=== PATIENT | male | born 1945 | race Caucasian/White ===

== ENCOUNTER → 2019-10-21 | Outpatient (CLI) | payer SELFPAY ==
[2019-10-21 13:07] LABS: BASOPHILS ABSOLUTE AUTO 0.07 K/mm3 (0.00-0.23); BASOPHILS PERCENT AUTO 1 % (0-2); EOSINOPHILS ABSOLUTE AUTO 0.01 K/mm3 (0.00-0.68); EOSINOPHILS PERCENT AUTO 0 % (0-6); Hematocrit 48.2 % (37.0-53.0); Hemoglobin 16.3 g/dL (13.5-17.5); IMMATURE GRAN ABSOLUTE AUTO 0.03 K/mm3 (0.00-0.10); IMMATURE GRAN PERCENT AUTO 0 % (0-1); LYMPHOCYTES ABSOLUTE AUTO 0.83 K/mm3 (0.84-5.20); LYMPHOCYTES PERCENT AUTO 8 % (21-46); MONOCYTES ABSOLUTE AUTO 0.41 K/mm3 (0.16-1.47); MONOCYTES PERCENT AUTO 4 % (4-13); Mean Corpuscular HGB 32.5 pg (26.0-34.0); Mean Corpuscular HGB Conc 33.8 g/dL (31.5-36.5); Mean Corpuscular Volume 96 fL (80-100); Mean Platelet Volume 9.8 fL (9.1-12.4); NEUTROPHILS ABSOLUTE AUTO 9.45 K/mm3 (1.96-9.15); NEUTROPHILS PERCENT AUTO 88 % (41-73); Platelet Count 444 K/mm3 (150-400); RDW Coefficient Variation 13.1 % (11.7-14.2); RDW Standard Deviation 46.8 fL (35.1-46.3); Red Blood Cell Count 5.01 M/mm3 (4.30-5.90)
[2019-10-21 13:18] LABS: Anion Gap 7 mmol/L (6-16); Blood Urea Nitrogen 13 mg/dL (8-24); Bun/Creatinine Ratio 14.7 (12.0-20.0); CO2, Blood 26 mmol/L (21-32); Calcium, Blood 9.7 mg/dL (8.5-10.1); Chloride, Blood 104 mmol/L (98-108); Creatinine, Blood 0.88 mg/dL (0.60-1.20); Glomerular Filtration Rate >60 (60-); Glucose, Blood 123 mg/dL (70-99); Prostate Specific Antigen 0.226 ng/mL (0.000-4.000); Sodium, Blood 137 mmol/L (136-145)
== END ==
LOC: LAB SHORT 12:15 → LAB 12:15
PROVIDERS: Nurse Practitioner
DX: R10.30 Lower abdominal pain, unspecified (principal)
CPT/HCPCS: 80048; 83690; 85025; G0103

== ENCOUNTER → 2020-01-02 | Outpatient (CLI) | payer OTHER ==
[2020-01-02 14:13] LABS: Albumin, Blood 2.9 g/dL (3.4-5.0); Anion Gap 4 mmol/L (6-16); Blood Urea Nitrogen 17 mg/dL (8-24); CO2, Blood 31 mmol/L (21-32); Calcium, Blood 9.5 mg/dL (8.5-10.1); Chloride, Blood 107 mmol/L (98-108); Creatinine, Blood 0.77 mg/dL (0.60-1.20); Glomerular Filtration Rate >60 (60-); Glucose, Blood 117 mg/dL (70-99); Phosphorus, Blood 2.8 mg/dL (2.5-4.9); Potassium, Blood 3.9 mmol/L (3.5-5.5); Sodium, Blood 142 mmol/L (136-145)
== END | disposition home or self-care (01) ==
LOC: LAB 13:49 → LAB SHORT 13:49
PROVIDERS: Radiology Radiation Oncology
DX: C34.31 Malignant neoplasm of lower lobe, right bronchus or lung (principal); C79.51 Secondary malignant neoplasm of bone; Z72.0 Tobacco use
CPT/HCPCS: 80069

== ENCOUNTER 2020-07-27 12:12 | Inpatient (IN) | payer OTHER, MEDICARE ==
[~2020-07-27] VITALS: Ht 180.3 cm; Wt 69.9 kg
[2020-07-27 12:27] LABS: BASOPHILS ABSOLUTE AUTO 0.06 K/mm3 (0.00-0.23); BASOPHILS PERCENT AUTO 1 % (0-2); EOSINOPHILS ABSOLUTE AUTO 0.05 K/mm3 (0.00-0.68); EOSINOPHILS PERCENT AUTO 1 % (0-6); Hemoglobin 14.5 g/dL (13.5-17.5); IMMATURE GRAN ABSOLUTE AUTO 0.07 K/mm3 (0.00-0.10); IMMATURE GRAN PERCENT AUTO 1 % (0-1); LYMPHOCYTES ABSOLUTE AUTO 0.43 K/mm3 (0.84-5.20); LYMPHOCYTES PERCENT AUTO 4 % (21-46); MONOCYTES ABSOLUTE AUTO 0.53 K/mm3 (0.16-1.47); MONOCYTES PERCENT AUTO 5 % (4-13); Mean Corpuscular HGB 32.2 pg (26.0-34.0); Mean Corpuscular Volume 98 fL (80-100); NEUTROPHILS ABSOLUTE AUTO 9.27 K/mm3 (1.96-9.15); NEUTROPHILS PERCENT AUTO 89 % (41-73); Platelet Count 278 K/mm3 (150-400); RDW Coefficient Variation 13.3 % (11.7-14.2); RDW Standard Deviation 48.4 fL (35.1-46.3); Red Blood Cell Count 4.51 M/mm3 (4.30-5.90); White Blood Cell Count 10.41 K/mm3 (4.00-11.30)
[2020-07-27 12:45] LABS: International Normalized Ratio 1.09; Prothrombin Time Results 11.7 Sec (9.7-11.5)
[2020-07-27 12:47] LABS: Alanine Aminotransfer (ALT/SGP 27 U/L (12-78); Albumin, Blood 3.2 g/dL (3.4-5.0); Albumin/Globulin Ratio 0.9 (0.8-1.8); Alk Phos 90 U/L (50-136); Anion Gap 3 mmol/L (6-16); Aspartate Aminotrans (AST/SGOT 21 U/L (12-37); Bilirubin, Total 0.3 mg/dL (0.1-1.0); Blood Urea Nitrogen 17 mg/dL (8-24); Bun/Creatinine Ratio 18.7 (12.0-20.0); CO2, Blood 30 mmol/L (21-32); Chloride, Blood 105 mmol/L (98-108); Creatinine, Blood 0.91 mg/dL (0.60-1.20); Globulin, Blood 3.5 g/dL (2.2-4.0); Glomerular Filtration Rate >60 (60-); Glucose, Blood 144 mg/dL (70-99); Sodium, Blood 138 mmol/L (136-145); Total Protein, Blood 6.7 g/dL (6.4-8.2)
[2020-07-27 12:47] LABS: Source, Urine Clean Catch
[2020-07-27 12:52] LABS: Bilirubin, Urine Neg (Neg); Blood, Urine Neg (Neg); Glucose Qualitative, Urine Neg (Neg); Ketones, Urine Neg (Neg); Leukocyte Esterase, Urine Neg (Neg); Nitrite, Urine Neg (Neg); Protein, Urine Neg (Neg); Urobilinogen, Urine NORM (Normal)
[2020-07-27 12:53] LABS: Appearance, Urine Clear (Clear); Color, Urine Yellow (P-Yellow)
[2020-07-27] MEDS ORDERED: DOXY100 PO (12:56)
[2020-07-27] MEDS ORDERED: CHLO25B PO (12:56)
[2020-07-27] MEDS ORDERED: BENZ100A PO (12:56)
[2020-07-27] MEDS ORDERED: DOC250 PO (12:56)
[2020-07-27 14:19] LABS: Cholesterol 148 mg/dL (50-200); HDL Cholesterol 50 mg/dL (>39); LDL/HDL RATIO 1.6; Low Density Lipoprotein Chol 79 mg/dL (0-110); Triglycerides 97 mg/dL (30-160); Very Low Density Lipoprot Chol 19 mg/dL (6-32)
--- NOTE | 2020-07-27 15:46 | NUR ---
SBAR REPORT FROM SCOTT PALOMINO RN
[2020-07-27] MEDS ORDERED: TRAZ100 PO (16:26)
[2020-07-27] MEDS ORDERED: GABA300 PO (16:26)
[2020-07-27] MEDS ORDERED: PRED20 PO (16:26)
[2020-07-27] MEDS ORDERED: VITAMIN D325 MC3 PO (17:12)
[2020-07-27] MEDS ORDERED: FOLI1 PO (17:12)
[2020-07-27] MEDS ORDERED: VITAMIN B-1250 MCG PO (17:13)
[2020-07-27] MEDS ORDERED: MAGNESIUM OXID500 MG PO (17:14)
[2020-07-27] MEDS ORDERED: Nortriptyline H50 MG PO (17:15)
[2020-07-27] MEDS ORDERED: Hydroxyzine HCl50 MG PO (17:15)
[2020-07-27] MEDS ORDERED: LOSA50 PO (17:16)
--- NOTE | 2020-07-28 04:17 | NUR ---
SHIFT SUMMARY ADMITTED FOR POSSIBLE CVA WITH LEFT SIDED WEAKNESS. FULL CODE. PT HAD SELF-REPORTED IMPROVEMENT IN STRENGTH TO THE LEFT ARM AND LEG. NO FACIAL DROOP NOTED. PT ON BEDREST. PT REPORTS DIFFICULTY SLEEPING WITHOUT HIS NORMAL NIGHT MEDICATION. NO OTHER CONCERNS THIS SHIFT.
--- NOTE | 2020-07-28 05:42 | NUR ---
CTA/COMPENSATION PROGRAMS MANAGER I HAVE ASSESSED THIS PT. I HAVE READ THIS COMPENSATION PROGRAMS MANAGER'S DOCUMENTATION AND I AGREE. SHIFT SUMMARY IS IN COMPENSATION PROGRAMS MANAGER NOTES.
--- NOTE | 2020-07-28 14:39 | NUR ---
PT IS WAITING FOR MRI. RECOMMENDATION WAS FOR PT TO HAVE MRI OUTPATIENT WHEN IT CAN BE DETERMINED WHAT KIND OF ANEURISM CLIPS PT HAS. WHEN ASKED ABOUT ANEURISM CLIPS PT DELINES HAVING AND ANEURISM CLIPPED. WILL RE-SCREEN PT FOR MRI WHEN HIS ARRIVES. PT IS ALERT AND ORIENTED BUT MAY BENEFIT FROM ADDITIONAL PERSON TO REMEMBER HEALTH HISTORY. PT REPORTS HE HAS HAD MULTIPLE SURGERIES/HOSPITALIZATIONS IN THE PAST.
--- NOTE | 2020-07-28 14:43 | NUR ---
PT REPORTS HE HAS A HX OF A HEMORRHAGIC STROKE AND WAS SEEN IN [facility] FOR THIS REASON. PT DENIES HAVING ANEURYSM CLIPPED AT THAT TIME. WITH PT CONSENT THE HOSPITAL WAS CONTACTED, THEY REPORTED NO ACCESS TO THE PT'S MEDICAL RECORDS SINCE THEY HAD SWITCH COMPUTER SYSTEM SINCE HE WAS SEEN IN THAT HOSPITAL. THEY REPORTED MEDICAL RECORDS WOULD BE OPEN ON WEDNESDAY AND PHONE NUMBER IS [phone].
--- NOTE | 2020-07-28 16:40 | NUR ---
ELEVATED BP DR. MEDRANO NOTIFIED OF ELEVATED BP THIS AFTERNOON 179/113. AT THIS TIME HYDRALAZINE HELD PER DR. MEDRANO'S REQUEST. WILL REASSESS BP AT 1700.
--- NOTE | 2020-07-28 17:29 | NUR ---
ELEVATED BP PT HAD ELEVATED BP OF 204/117. DR. MEDRANO NOTIFIED. IV HYDRALAZINE GIVEN. WILL REASSESS IN APPROXIMATELY 30MIN. PT DENIES HEADACHE. PT DOES APPEAR FLUSHED.
--- NOTE | 2020-07-28 17:59 | NUR ---
PT WAS GIVEN HYDRALAZINE FOR ELEVATED BP. HE BECAME NAUSEATED, DIAPHORETIC AND VOMITED. HE ALSO COMPLAINED OF SHORTNESS OF BREATH AFTER VOMITING, THIS RESOLVED WITHOUT INTERVENTION AND O2 SATURATION 95%ON RA. PT DENIED CHEST PAIN. LUNG SHOUNDS COARSE TO L BASE. DR. MEDRANO WAS NOTIFIED OF CHANGES AFTER PT WAS GIVEN HYDRALAZINE. SHE ALSO ORDERED PT'S HOME MEDICATIONS NOT LISTED ON THE EMAR.
--- NOTE | 2020-07-28 18:35 | NUR ---
AFIB PER TYRE FINISHER AND EXAMINER PT CONVERTED FROM NSR TO AFIB WITH RATE 130-140. PT IS ASYMPTOMATIC AT THIS TIME. WILL GIVE CARDIZEM AND ASA PER DR. MEDRANO. DR. MEDRANO NOTIFIED OF RHYTHM CHANGE.
--- NOTE | 2020-07-28 19:50 | NUR ---
SHIFT SUMMARY PT REMAINS IN THE HOSPITAL R/T MRI RESULTS. HE ALSO HAD ELEVATED BLOOD PRESSURE THIS EVENING. HOME MEDICATIONS RESTARTED PER DR. MEDRANO. ASA DOSE INCREASED. PT REMAINS AWAKE AND ORIENTED ALTHOUGH HE IS DROWSY R/T HIS NORMAL NIGHT TIME MEDICATIONS, PT REPORTS HE NORMALLY GOES TO BED AT 7 SO HIS NIGHT MEDS WERE GIVEN EARLY, OK'D WITH DR. MEDRANO. REPORT GIVEN TO DIPIKA MARTINEZ.
--- NOTE | 2020-07-29 04:12 | NUR ---
VETERINARY PARASITOLOGIST SUMMARY AT START OF SHIFT PT HYPOTENSIVE WITH SBP 94. THIS WAS A DRASTIC CHANGE FOR PT HE HAD BEEN VERY HYPERTENSIVE FOR THE LAST COUPLE DAYS WITH SBP 170-200'S. PT HAD RECIEVED IV CARDIZEM FROM DAY SHIFT RN JUST PRIOR TO START OF SHIFT FOR HR OF 130'S. AT TIME OF LOW BP PT HR CONTINUED TO BE 130-140'S EVEN AFTER CARDIZEM GIVEN. NOTIFIED HOSPITALIST THOMAS WHO GAVE ORDER FOR 500 ML NS BOLUS. AFTER BOLUS SBP 105 AND HR DOWN TO 110'S. CELLAR PUMPER ALSO STATED PT CONVERTED BACK TO SR FROM AFIB. HR TRENDING DOWN THROUGH THE NIGHT AND NOW NSR 90'S THIS AM. SBP STABLE THIS AM AT 120'S. PT HAS HAD NO COMPLAINTS THROUGH THE NIGHT AND HAS SLEPT WELL. WILL CONTINUE TO MONITOR.
[2020-07-29] MEDS ORDERED: Nicoderm Cq1 EAC1 TOP (11:03)
[2020-07-29] MEDS ORDERED: XARELTO20 MG PO (11:03)
--- NOTE | 2020-07-29 15:37 | NUR ---
DISCHARGE INSTRUCTIONS COMPLETED AND DISCUSSED WITH PT EXPRESSING UNDERSTANDING. ENCOURAGED PT TO NUCLEAR FUELS RECLAMATION ENGINEER SCRIPTS EARLY A.M. SO HE CAN TAKE THEM TOMORROW DUE TO PHARMACY BEING CLOSED TODAY. REFERRAL PLACED FOR [facility] [employer] PER INSERTER PROMOTIONAL ITEM RECOMMENDATION HERE JUST PRIOR TO DISCHARGE. AT BEDSIDE. TO [facility] VIA W/C.
== END 2020-07-29 15:06 | disposition home or self-care (01) | DRG 65 ==
LOC: ER 12:12 → MEDS 12:13 → ENPENDDIS 07-29 10:37 → MEDS 07-29 15:06
PROVIDERS: Emergency Medicine; ADMIT Family Medicine
DX: I63.40 Cerebral infarction due to embolism of unspecified cerebral artery (principal); C34.90 Malignant neoplasm of unspecified part of unspecified bronchus or lung; C79.9 Secondary malignant neoplasm of unspecified site; G81.04 Flaccid hemiplegia affecting left nondominant side; G40.909 Epilepsy, unspecified, not intractable, without status epilepticus; I25.10 Atherosclerotic heart disease of native coronary artery without angina pectoris; G89.29 Other chronic pain; M54.9 Dorsalgia, unspecified; I48.0 Paroxysmal atrial fibrillation; E21.3 Hyperparathyroidism, unspecified; H53.8 Other visual disturbances; J44.9 Chronic obstructive pulmonary disease, unspecified; E05.90 Thyrotoxicosis, unspecified without thyrotoxic crisis or storm; F10.10 Alcohol abuse, uncomplicated; M89.49 Other hypertrophic osteoarthropathy, multiple sites; F32.9 Major depressive disorder, single episode, unspecified; Z86.19 Personal history of other infectious and parasitic diseases; Z88.5 Allergy status to narcotic agent; Z87.442 Personal history of urinary calculi; Z98.890 Other specified postprocedural states; Z71.6 Tobacco abuse counseling
CPT/HCPCS: 36415; 70450; 70551; 71045; 80053; 80061; 81003; 85025; 85610; 85730; 92610; 93005; 93010; 93306; 93880; 94760; 96372; 96374; 96375; 97162; 99285-25; A9270; G0378; J0360; J1650; J2405; J7040

== ENCOUNTER 2020-08-08 13:56 | Emergency (ER) | payer OTHER, MEDICARE ==
[~2020-08-08] VITALS: Ht 177.8 cm; Wt 69.4 kg
[~2020-08-08 13:56] MED LIST: BENZ100A PO; CHLO25B PO; DOC250 PO; DOXY100 PO; FOLI1 PO; GABA300 PO; Hydroxyzine HCl50 MG PO; LOSA50 PO; MAGNESIUM OXID500 MG PO; Nicoderm Cq1 EAC1 TOP; Nortriptyline H50 MG PO; PRED20 PO; TRAZ100 PO; VITAMIN B-1250 MCG PO; VITAMIN D325 MC3 PO; XARELTO20 MG PO
[2020-08-08] MEDS ORDERED: NORTRIPTYLINE H PO (14:32)
[2020-08-08] MEDS ORDERED: ONDA4 PO (14:33)
[2020-08-08] MEDS ORDERED: SERT25 PO (14:35)
[2020-08-08 14:55] LABS: BASOPHILS ABSOLUTE AUTO 0.08 K/mm3 (0.00-0.23); BASOPHILS PERCENT AUTO 1 % (0-2); EOSINOPHILS ABSOLUTE AUTO 0.05 K/mm3 (0.00-0.68); EOSINOPHILS PERCENT AUTO 1 % (0-6); Hematocrit 45.6 % (37.0-53.0); IMMATURE GRAN ABSOLUTE AUTO 0.08 K/mm3 (0.00-0.10); IMMATURE GRAN PERCENT AUTO 1 % (0-1); LYMPHOCYTES ABSOLUTE AUTO 0.69 K/mm3 (0.84-5.20); LYMPHOCYTES PERCENT AUTO 7 % (21-46); MONOCYTES ABSOLUTE AUTO 0.64 K/mm3 (0.16-1.47); MONOCYTES PERCENT AUTO 6 % (4-13); Mean Corpuscular HGB 32.3 pg (26.0-34.0); Mean Corpuscular HGB Conc 32.9 g/dL (31.5-36.5); Mean Corpuscular Volume 98 fL (80-100); Mean Platelet Volume 10.1 fL (9.1-12.4); NEUTROPHILS ABSOLUTE AUTO 8.91 K/mm3 (1.96-9.15); NEUTROPHILS PERCENT AUTO 85 % (41-73); Platelet Count 355 K/mm3 (150-400); RDW Coefficient Variation 13.4 % (11.7-14.2); RDW Standard Deviation 48.9 fL (35.1-46.3); Red Blood Cell Count 4.64 M/mm3 (4.30-5.90); White Blood Cell Count 10.45 K/mm3 (4.00-11.30)
[2020-08-08 14:58] LABS: Alanine Aminotransfer (ALT/SGP 34 U/L (12-78); Albumin, Blood 3.3 g/dL (3.4-5.0); Albumin/Globulin Ratio 0.8 (0.8-1.8); Alk Phos 88 U/L (50-136); Anion Gap 3 mmol/L (6-16); Aspartate Aminotrans (AST/SGOT 25 U/L (12-37); Bilirubin, Total 0.3 mg/dL (0.1-1.0); Blood Urea Nitrogen 20 mg/dL (8-24); Bun/Creatinine Ratio 23.6 (12.0-20.0); CO2, Blood 29 mmol/L (21-32); Calcium, Blood 9.1 mg/dL (8.5-10.1); Chloride, Blood 105 mmol/L (98-108); Creatinine, Blood 0.85 mg/dL (0.60-1.20); Globulin, Blood 3.9 g/dL (2.2-4.0); Glomerular Filtration Rate >60 (60-); Glucose, Blood 103 mg/dL (70-99); Potassium, Blood 3.8 mmol/L (3.5-5.5); Sodium, Blood 137 mmol/L (136-145); Total Protein, Blood 7.2 g/dL (6.4-8.2); Troponin I <0.015 ng/mL (0.000-0.040)
== END 2020-08-08 16:33 | disposition home or self-care (01) ==
LOC: ER 13:56
PROVIDERS: Emergency Medicine
DX: R59.0 Localized enlarged lymph nodes (principal); I10 Essential (primary) hypertension; I25.10 Atherosclerotic heart disease of native coronary artery without angina pectoris; Z79.899 Other long term (current) drug therapy; Z88.5 Allergy status to narcotic agent; Z87.891 Personal history of nicotine dependence
CPT/HCPCS: 80053; 82378; 83615; 84484; 85025; 93005; 93010; 99284-25

== ENCOUNTER → 2020-09-09 | Outpatient (CLI) | payer OTHER, MEDICARE ==
[~2020-09-09] MED LIST changes: +NORTRIPTYLINE H PO; +ONDA4; +SERT25 PO
== END | disposition home or self-care (01) ==
LOC: LAB SHORT 07:07 → LAB 07:07
DX: C34.90 Malignant neoplasm of unspecified part of unspecified bronchus or lung (principal); R59.1 Generalized enlarged lymph nodes
CPT/HCPCS: 88173

== ENCOUNTER 2020-09-13 08:50 | Inpatient (IN) | payer OTHER, MEDICARE ==
[~2020-09-13] VITALS: Ht 180.3 cm; Wt 78.2 kg
[~2020-09-13 08:50] MED LIST changes: -ONDA4; +ONDA4 PO
--- NOTE | 2020-09-13 11:06 | NUR ---
PT INTO DSD BY W/C BUT ABLE TO STAND AND WALK SHORT DISTANCES. History, Chart, Medications and Allergies reviewed before start of procedure. Patient confirms NPO status and agrees with scheduled surgery. Lungs clear T/O to Auscultation BUT PT SOUNDS GURGLY IN THROAT, PT ABLE TO CLEAR THROAT. Pre-Op teaching done. Pt verbalizes understanding. PT'S VACCINATION CARD NOT AVAILABEL SO SENT A STAT RAPID COVID TEST.
[2020-09-13 11:54] LABS: SARS-Cov-2 (COVID-19) PCR, MMC NEGATIVE (NEGATIVE)
--- NOTE | 2020-09-13 13:22 | NUR ---
09/13/20 1322 Stacy Ramírez [id number] TRACHEOSTOMY TUBE XLT CUFFED USED. OBTURATOR SENT WITH PATIENT AND TAPED TO HIS HEAD OF BED.
[2020-09-13 15:20] LABS: Hematocrit 38.3 % (37.0-53.0); Hemoglobin 12.3 g/dL (13.5-17.5); Mean Corpuscular HGB 31.9 pg (26.0-34.0); Mean Corpuscular HGB Conc 32.1 g/dL (31.5-36.5); Mean Corpuscular Volume 99 fL (80-100); Mean Platelet Volume 9.7 fL (9.1-12.4); Platelet Count 265 K/mm3 (150-400); RDW Coefficient Variation 14.5 % (11.7-14.2); RDW Standard Deviation 52.6 fL (35.1-46.3); Red Blood Cell Count 3.86 M/mm3 (4.30-5.90); White Blood Cell Count 15.99 K/mm3 (4.00-11.30)
[2020-09-13 15:40] LABS: Albumin, Blood 2.7 g/dL (3.4-5.0); Anion Gap 2 mmol/L (6-16); Blood Urea Nitrogen 19 mg/dL (8-24); Bun/Creatinine Ratio 17.9 (12.0-20.0); CO2, Blood 33 mmol/L (21-32); Chloride, Blood 103 mmol/L (98-108); Creatinine, Blood 1.06 mg/dL (0.60-1.20); Glomerular Filtration Rate >60 (60-); Glucose, Blood 113 mg/dL (70-99); Phosphorus, Blood 1.8 mg/dL (2.5-4.9); Potassium, Blood 3.9 mmol/L (3.5-5.5); Sodium, Blood 138 mmol/L (136-145)
--- NOTE | 2020-09-13 17:38 | NUR ---
SUMMARY PT ARRIVED TO ICU 3 AT 1410 FROM OR. PT HAD TRACH PLACED. PT WAS ON VENTILATOR FOR SHORT AMT OF TIME DURING RECOVERY THEN TRANSITIONED TO T PIECE WITH FIO2 AT 35%. ABLE TO CLEAR SECRETIONS. PT IS A/O X4. ABLE TO MOUTH WORDS VERY CLEARLY TO MAKE NEEDS KNOWN. PT HAS BEEN STABLE. DR. CHEW WAS CONSULTED FOR HOSPITALIST SERVICE. WANTS TO KEEP PT IN ICU FOR THE NIGHT. EDUCATED PT AND ABOUT NPO ORDERS FOR TODAY AND HOPEFULLY PT WILL BE ABLE TO HAVE SPEAKING VALVE PLACED. FENTANYL GIVEN 1X FOR DISCOMFORT AT TRACH SITE. SM AMT OF BLOOD AROUND TRACH BUT HAS NOT WORSENED SINCE ARRIVAL FROM OR. PT HAS SWELLING IN NECK THAT WAS PRESENT BEFORE TRACH PROCEDURE PER PT AND . NO SIGN OF DISTRESS NOW, CALL LIGHT IN REACH.
[2020-09-14 03:48] LABS: Hematocrit 42.5 % (37.0-53.0); Hemoglobin 13.6 g/dL (13.5-17.5)
[2020-09-14 04:10] LABS: Anion Gap 2 mmol/L (6-16); Blood Urea Nitrogen 21 mg/dL (8-24); Bun/Creatinine Ratio 21.3 (12.0-20.0); CO2, Blood 31 mmol/L (21-32); Calcium, Blood 8.6 mg/dL (8.5-10.1); Chloride, Blood 104 mmol/L (98-108); Creatinine, Blood 0.99 mg/dL (0.60-1.20); Glomerular Filtration Rate >60 (60-); Glucose, Blood 86 mg/dL (70-99); Potassium, Blood 4.3 mmol/L (3.5-5.5); Sodium, Blood 137 mmol/L (136-145)
--- NOTE | 2020-09-14 05:01 | NUR ---
SHIFT SUMMARY PATIENT HAS SLEPT WELL THRU NIGHT. OBTAINED ORDER PER DR HURT FOR DILAUDED 1MG FOR PAIN NOT WELL CONTROLLED WITH FENTANYL, PT NOW DENIES PAIN. SWELLING IS SLIGHTLY MORE THAN AT START OF SHIFT, SOME SMALL AMOUNT OF BLEEDING NOTED FROM TRACH SITE. PT MANAGING SECRETIONS WELL. ASSESSMENT IS CHARTED. VSS. WILL CONTINUE TO MONITOR.
--- NOTE | 2020-09-14 10:03 | NUR ---
PT RESTING IN BED. NEW TRACH. PT IS ABLE TO MOUTH WORDS CLEARLY AND MAKE NEEDS KNOWN. ALSO USES CALL LIGHT APPROPRIATELY. PT C/O DISCOMFORT TO [facility] WHERE TRACH IS INSERTED. FENTANYL GIVEN. ALTERNATING FENTANYL AND DILAUDID. SMALL AMT OF SERSANG DRAINAGE FROM AROUND TRACH. PT IS ON T-PIECE AT 35% FIO2. PT IS DOING WELL CLEARING HIS OWN SECRETIONS. NO SIGN OF DISTRESS.
--- NOTE | 2020-09-14 18:45 | NUR ---
SUMMARY PT HAS BEEN RESTING IN BED. GOT OOB TO COMMODE ONE TIME AND TOLERATED WELL. HAS BEEN ON T-PIECE ALL DAY AT 35% FIO2. WILL DESAT TO MID 80'S WHEN OFF T-PIECE. STILL HAVING SEROSANG DRAINAGE FROM TRACH SITE. BLOODY SECRETIONS WHEN DEEP SUCTIONING TRACH. STILL HAS SWELLING IN NECK. HAD BEEN TRYING TO CONTACT DR. DOHERTY THIS AFTERNOON AND DR. ROBLERO WAS ABLE TO REACH HIM FOR PLAN OF CARE. NEW ORDERS BEING ENTERED BY DR. ROBLERO. DILAUDID GIVEN FOR DISCOMFORT AROUND TRACH SITE. PT ALSO HAS METS TO BONE PER THAT CAUSES A LOT OF BACK PAIN. PT IS PLEASANT AND COOPERATIVE. MAKES NEEDS KNOWN BY MOUTHING WORDS OR WRITING ON PAPER. USES CALL LIGHT APPROPRIATELY. NO SIGN OF DISTRESS.
--- NOTE | 2020-09-14 22:20 | NUR ---
PT IS ALERT AND ORIENTED. VITALS ARE STABLE. PT WAS ADVANCED TO A CLEAR LIQUID DIET AND TOLERATED PILLS AND BROTH WELL. DR DOHERTY WAS IN TO SEE PT AND DIET WAS ADVANCED TO ADVANCE TOLERATED WITH MONITORING. PT WAS CHANGED TO PCU STATUS. CALL LIGHT IS WITHIN REACH AND USING IT APPROPRIETLY. PT IS USING URINAL IN BED. WILL CONTINUE TO MONITIOR.
--- NOTE | 2020-09-14 22:51 | NUR ---
CALLED DR LAGUNAS REGARDING THE NEED FOR A LONG ACTING PAIN MEDICATION FOR PT DUE TO HAVING ONLY IV PAIN MEDS. DUE TO PT'S ALLERGY TO OXYCODONE; IV DILAUDID ORDER WILL BE CHANGED TO 1-2MG.
--- NOTE | 2020-09-15 02:15 | NUR ---
AT APPROX 0110 PT REPORTED HAVING AN UPSET STOMACH AND NAUSEA. ORDER FOR ZOFRAN WAS OBTAINED. PT WAS MEDICATED PER EMAR AND REPORT FEELING BETTER. WILL CONTINUE TO MONITOR
[2020-09-15 03:22] LABS: Hematocrit 41.4 % (37.0-53.0); Hemoglobin 13.3 g/dL (13.5-17.5); Mean Corpuscular HGB 32.4 pg (26.0-34.0); Mean Corpuscular HGB Conc 32.1 g/dL (31.5-36.5); Mean Corpuscular Volume 101 fL (80-100); Mean Platelet Volume 9.9 fL (9.1-12.4); Platelet Count 278 K/mm3 (150-400); RDW Coefficient Variation 14.2 % (11.7-14.2); RDW Standard Deviation 52.8 fL (35.1-46.3); Red Blood Cell Count 4.11 M/mm3 (4.30-5.90); White Blood Cell Count 10.67 K/mm3 (4.00-11.30)
[2020-09-15 03:39] LABS: Albumin, Blood 2.8 g/dL (3.4-5.0); Anion Gap 2 mmol/L (6-16); Blood Urea Nitrogen 20 mg/dL (8-24); CO2, Blood 31 mmol/L (21-32); Chloride, Blood 102 mmol/L (98-108); Glomerular Filtration Rate >60 (60-); Glucose, Blood 86 mg/dL (70-99); Phosphorus, Blood 2.6 mg/dL (2.5-4.9); Potassium, Blood 4.2 mmol/L (3.5-5.5); Sodium, Blood 135 mmol/L (136-145)
--- NOTE | 2020-09-15 04:42 | NUR ---
SHIFT SUMMARY PT IS ALERT AND ORIENTED. COOOMUICATED BY LIP OR WITH NOTEPAD. VITALS HAVE BEEN STABLE WITH SOFT BP'S. PT DID WRTITE ON HIS BOARD LAST NIGHT THAT "HE ALMOST IN OR AND WANTED TO BE WATCHED CLOSELY." PT REPORTS FELLING AN UPSET STOMACH WITH LITTLE RELIEF FROM ZOFRAN. PT REPORTS PAIN OF 9/10 IN NECK WITH SHORT RELIEF FOR ORDERED MED. THERE IS SMALL OF BLOOD DRAINING FROM THE SUROUNDINGS OF THE TRACH. PT WAS ADVANCED TO CLEAR LIQUIDS AND TOLERATED BROTH AND ORAL MEDS WITH WATER WELL WITH NO COUGH. DR JOHN ADVANCED TO ADVANCE TOLERATED WITH OBSERVATION. PT HAS NOT HAD THE NEED TO GET OUT OF BED BUT ALL EXTREMETIES ARE WEAK. USING URINAL ON BED. CALL LIGHT IS WITHIN REACH.
--- NOTE | 2020-09-15 10:06 | NUR ---
PT ALERT AND ORIETNED. ABLE TO COMMUNICATE BY MOUTHING WORDS AND USING NOTEPAD. LUNGS SOUNDING COARSE THROUGHOUT. TRACH COLLAR IN PLACE WITH T PIECE AND 40% FIO2, SATING AT 93-94%. SUCTIONING NEEDED. DRAINING MODERATE AMOUNT OF BLOOD SURROUNDING TRACH SIGHT. TELE SHOWING SINUS WITH HR 60-70'S. DENIES CHEST PAIN/PRESSURE. VITAL SIGNS STABLE WITH SOFTER BP. BOWEL SOUNDS PRESENT. PT SLEEPING IN BED THIS AM. TOLERATING CLEAR LIQUID DIET AND ABLE TO TAKE MEDS ONE AT A TIME WITH WATER. USING URINAL IN BED AND UP TO BSC WITH 1-2 PERSON ASSIST. COMPLAINS OF PAIN SURROUNDING TRACH, SLIGHT BRUISING AND SWELLING TO NECK, DENIES PAIN MEDICATION AT THIS TIME. WILL CONTINUE TO MONITOR.
--- NOTE | 2020-09-15 14:49 | NUR ---
PT DOING WELL, UP TO CHAIR WITH PT. TRACH AT 40% FIO2. DRAINING SMALL-MODERATE AMOUNT OF RED BLOOD AT SITE. DENIES PAIN AT THIS TIME. MEDICATED ONCE PER EMAR THIS MORNING. SUCTIONING NEEDED. VITAL SIGNS STABLE. WILL CONTINUE TO MONITOR.
--- NOTE | 2020-09-15 17:39 | NUR ---
SPOKE WITH DR. DOHERTY REGARDING XERALTO. ORDERS TO HOLD XERALTO AT THIS TIME, DUE TO TRACH BLEEDING.
--- NOTE | 2020-09-15 18:38 | NUR ---
PT REMAINS ALERT AND ORIENTED X4. NO ACUTE CHANGES. SUCTIONING TRACH NEEDED. SECRETIONS ARE BLOOD TINGED AND BLOOD OOZING FROM TRACH SITE. DR. DOHERTY AND OSBALDO AWARE. TRACH T PIECE WITH 40% FIO2 SATING 93-94%. NO CHANGES TO TELE. COMPLAINED OF NECK PAIN THIS EVENING, MEDICATED PER EMAR. WILL CONTINUE TO MONITOR AND REPORT OFF.
[2020-09-16 03:38] LABS: Hemoglobin 13.2 g/dL (13.5-17.5); Mean Corpuscular HGB 32.6 pg (26.0-34.0); Mean Corpuscular HGB Conc 32.2 g/dL (31.5-36.5); Mean Corpuscular Volume 101 fL (80-100); Mean Platelet Volume 10.2 fL (9.1-12.4); Platelet Count 231 K/mm3 (150-400); RDW Coefficient Variation 13.8 % (11.7-14.2); RDW Standard Deviation 51.7 fL (35.1-46.3); Red Blood Cell Count 4.05 M/mm3 (4.30-5.90); White Blood Cell Count 9.78 K/mm3 (4.00-11.30)
--- NOTE | 2020-09-16 05:02 | NUR ---
SHIFT SUMMARY PATIENT IS ALERT AND ORIENTED X4. COMMUNICATES BY WRITING OR MOUTHING WORDS, ANSWERS APPROPRIATELY. 02 SATS 94-97% ON AIRVO FI02 35%, VIA TRACH. GAUZE PADS PLACED BELOW TRACH TO CATCH BLOOD OOZING. LUNGS COARSE, SUCTION PRN. PT TOLERATED SWOLLOWING PILLS WELL. NECK SWELLING UNCHANGED THROUGHOUT SHIFT. PATIENT COMPLAINS OF 8/10 NECK PAIN, CALLED HOSPITALIST FOR DIFFERENT PAIN MEDICATION DUE TO LOW BLOOD PRESSURE 86/58 AND 97/65, MEDICATED PER EMAR. VSS, OTHERWISE. 1 PERSON ASSIST WITH REPOSITIONING NEEDED TO HELP MANAGE LINES AND TRACH. CALL LIGHT IN REACH.
--- NOTE | 2020-09-16 07:14 | NUR ---
ASSUMED CARE: TRAC COLLAR IN PLACE, BLOODY DRAINAGE AROUND TRACH NOTED. NSR ON TELE AT THIS TIME. NO ACUTE NEEDS AT THIS TIME.
--- NOTE | 2020-09-16 14:39 | NUR ---
DR ROBLERO AWARE THAT PT HAS BEEN MADE NPO BY SPEECH THERAPIST. CLARIFIED WITH HER IF SHE WANTS MEDS NPO WELL AND REVIEWED MEDS WITH HER. DR STATES OK TO HOLD ALL PO MEDS AT THIS TIME AND GIVE IV PAIN MEDS IF NEEDED.
--- NOTE | 2020-09-16 17:25 | NUR ---
Met briefly with patient and . offered pt a communication board and gave him some choices of writing tools and clip boards. asked nursing to switch his sat monitor and advised pt to guide staff on putting it on non dominant writing hand. Gave him a highlighter and some ques on how to express urgency of severe pain. Pt affect appears anxious. Reviewed pain board and how to express pain. Offered him a coloring book he let me know TV is ok. stated she is very anxious and coloring for her would be great. Brought her some choices and pens and reassurance.pt wants his to wash his face set up wash cloths and advised do not get neck wet. will follow up for symptom managment and plan of care and polst and AD. Will see what plan of care is going forward.
--- NOTE | 2020-09-16 18:25 | NUR ---
SHIFT SUMMARY: PT HAS BEEN NPO ALL DAY PER SPEECH THERAPY DUE TO THEM WANTING TO DO A BARIUM SWALLOW ON PT. NO ORDER PLACED, LEFT MESSAGE FOR DR ROBLERO WITH NO CALL BACK SO CALL TO DR DOHERTY'S ANSWERING SERVICE TO ASK DR DOHERTY ABOUT ORDERS. AWAITING CALL BACK. PT CONTINUES TO HAVE SWELLING AROUND TRACH SITE THAT EXTENDS UP TO NECK. OOZING AND BLOODY SPUTUM NOTED FROM TRACH SITE. DR ROBLERO AWARE AND ORDERED TO HOLD XARELTO FOR NOW. PT WORKED WITH PT/OT THIS SHIFT. NO FURTHER NEEDS OR CONCERNS AT THIS TIME. REMAINS AT 35% ON TRACH COLLAR.
--- NOTE | 2020-09-16 18:42 | NUR ---
DR DOHERTY CALLED BACK AND DISCUSSED WITH THIS RN PT'S STATUS. AWARE OF CONTINUED OOZING AND BLOODY SPUTUM. ALSO AWARE OF PT'S "SWELLING" THAT STATES IS NORMAL FOR PT'S HEALTH HISTORY. ORDER PLACED FOR BARIUM SWALLOW AND MESSAGE LEFT WITH SPEECH THERAPY
--- NOTE | 2020-09-16 19:30 | NUR ---
ASSUMPTION OF CARE RECEIVED REPORT FROM KIMBERLY MARTINEZ AT 1915. ASSUMED CARE OF PATIENT. PATIENT IN BED WITH EYES CLOSED, VITALS STABLE. TRACH COLLAR IN PLACE AT 35% FIO2 WITH 02 SATS ABOVE 95%. WILL REVIEW ORDERS AND TREAT PRESCRIBED.
--- NOTE | 2020-09-17 00:01 | NUR ---
REASSESSMENT NO ACUTE CHANGES FROM PREVIOUS ASSESSMENT. PATIENT PREVIOUSLY REQUESTED SOMETHING TO HELP HIM SLEEP AND QUESTIONED WHY HE COULDN'T HAVE HIS PO MEDICATIONS. EDUCATED PATIENT REGARDING BARIUM SWALLOW AND RISK FOR ASPIRATION, PATIENT UNDERSTOOD. REPORTED PATIENT'S REQUEST TO DR. LAGUNAS AND RECEVIED ORDERS FOR ATIVAN. ATIVAN GIVEN CHARTED, PATIENT CURRENTLY SLEEPING WITH EYES CLOSED, RESP E/U, NO S/S OF DISTRESS. CALL LIGHT IN REACH.
[2020-09-17 03:33] LABS: Hematocrit 39.3 % (37.0-53.0); Mean Corpuscular HGB 32.6 pg (26.0-34.0); Mean Corpuscular HGB Conc 33.1 g/dL (31.5-36.5); Mean Corpuscular Volume 99 fL (80-100); Platelet Count 264 K/mm3 (150-400); RDW Coefficient Variation 14.1 % (11.7-14.2); RDW Standard Deviation 51.5 fL (35.1-46.3); Red Blood Cell Count 3.99 M/mm3 (4.30-5.90); White Blood Cell Count 8.66 K/mm3 (4.00-11.30)
[2020-09-17 03:52] LABS: Albumin, Blood 2.5 g/dL (3.4-5.0); Anion Gap 2 mmol/L (6-16); Blood Urea Nitrogen 23 mg/dL (8-24); Bun/Creatinine Ratio 23.4 (12.0-20.0); CO2, Blood 30 mmol/L (21-32); Calcium, Blood 8.1 mg/dL (8.5-10.1); Chloride, Blood 101 mmol/L (98-108); Creatinine, Blood 0.98 mg/dL (0.60-1.20); Glomerular Filtration Rate >60 (60-); Glucose, Blood 91 mg/dL (70-99); Phosphorus, Blood 1.7 mg/dL (2.5-4.9); Potassium, Blood 4.1 mmol/L (3.5-5.5); Sodium, Blood 133 mmol/L (136-145)
--- NOTE | 2020-09-17 06:12 | NUR ---
SHIFT SUMMARY PATIENT WITH TRACH COLLAR AT 35% IN PLACE THROUGH NIGHT. 02 SATS ABOVE 95%. PATIENT RESTED AFTER ATIVAN WAS GIVEN FOR COMFORT. FENTANYL GIVEN FOR PAIN CHARTED. TRACH CARE COMPLETED THIS AM, BLEEDING NOTED AROUND TRACH WITH SIGNIFICANT SWELLING. NEW GAUZE PROVIDED TO AREA. SUCTIONED COPIOUS AMOUNT OF BLOOD TINGED SPUTUM VIA TRACH THROUGH OUT SHIFT. EDUCATED PATIENT REGARDING BARIUM SWALLOW AND WAITING FOR ORAL MEDICATIONS UNTIL SPEECH THERAPIST IDENTIFIES IT IS SAFE FOR PATIENT TO SWALLOW. PATIENT VERBALIZED UNDERSTANDING. WILL CONTINUE TO MONITOR, AND REPORT TO ONCOMING RN.
--- NOTE | 2020-09-17 07:11 | NUR ---
ASSUMED CARE: PT REESTING IN BED WITH TRACH IN PLACE AND TRACH COLLAR AT 35%. RT AT BEDSIDE AT THIS TIME. BLOOD TINGED SECRETIONS NOTED. SWELLING IN NECK NOTED. NSR ON TELE. NO ACUTE NEEDS AT THIS TIME.
--- NOTE | 2020-09-17 08:30 | NUR ---
SPEECH THERAPIST CAME TO SEE PT AND STATED THAT SHE WANTED TO CHECK WITH DR DOHERTY ABOUT WAITING TO DO BARRIUM SWALLOW UNTIL HIS TRACH GETS CHANGED BECAUSE CUFF WILL INTERFERE WITH ACCURATE SWALLOW EVAL. STATES SHE IS AWAITING CALL BACK
--- NOTE | 2020-09-17 10:00 | NUR ---
CALL TO SPEECH THERAPIST TO FOLLOW UP ON PLANS AND STATES SHE WILL CHECK IN WITH DR DOHERTY ABOUT ORDERS
--- NOTE | 2020-09-17 13:00 | NUR ---
DR ROBLERO CAME TO SEE PT AND WAS MADE AWARE OF SPEECH THERAPIST'S CONCERNS. SPEECH THERAPIST CAME TO SEE PT AND STATES THAT DR DOHERTY WAS OK WITH WAITING UNTIL TOMORROW FOR EVAL. PT STATED HE DID NOT WANT TO WAIT AND WANTED TO EAT. SPEECH THERAPIST MADE SURE PT WAS AWARE OF RISKS AND PT STATED HE STILL WANTED TO BE ABLE TO EAT SO CLEAR LIQUID DIET WAS RESTARTED AND SPEECH DISCONTINUED THEIR CONSULT BUT TOLD PT THAT IF HE CHANGED HIS MIND THEY WOULD BE WILLING TO REEVALUATE
--- NOTE | 2020-09-17 13:52 | NUR ---
Met pt sitting up and his nurse attending to his needs , ptis doing fine prayed for pt.
--- NOTE | 2020-09-17 18:03 | NUR ---
SHIFT SUMMARY: PT REMAINS WITH TRACH TO TRACH COLLAR AT 35% FIO2. FREQUENT SECRETIONS THAT ARE BLOOD TINGED BUT LIGHTENING UP IN COMPARISON TO PREVIOUS SHIFTS. NO LONGER NPO SO FLUIDS DC'D. WAS AT BEDSIDE THIS SHIFT. PT WORKED WITH OT BUT WAS TOO TIRED TO WORK WITH PHYSICAL THERAPY. GOT UP INTO CHAIR THIS AM. DENIES NEEDS OR CONCERNS AT THIS TIME.
--- NOTE | 2020-09-17 21:14 | NUR ---
DR. CHAS DOHERTY TO ROOM. ASSESSED PT. COMMENTED THAT RED SECRETIONS HAVE GREATLY DECREASED. UPDATED ON PT. PROVIDER STATES THAT HE WILL BE REPLACING TRACH IN THE AM AROUND 0800 - 0900.
--- NOTE | 2020-09-17 21:45 | NUR ---
ASSUMED CARE PT RESTING IN BED, EASILY AWAKENS TO VERBAL STIMULI. TRACH IN PLACE, TRACH COLLAR 35%. SWELLING TO NECK NOTED, PT HAVING MINIMAL PAIN AT THIS TIME. REPOSITIONS SELF. SPO2 92%, DIPS DOWN TO 88% WHEN REPOSITIONED BUT QUICKLY BACK UP TO 91%. PT DENIES NEEDS AT THIS TIME. SUCTIONED TRACH, SMALL AMOUNT OF SECRETIONS OUT.
--- NOTE | 2020-09-17 21:56 | NUR ---
TRANSFER OF CARE RELINQUISHED CARE @0. PT AXO. IN SR. TRACH INTACT, INLINE SUCTIONED X3 DURING MY CARE. PT TOLERATED WELL. NO BLOOD NOTED IN OUTPUT. BREATH SOUNDS CLEAR UP WITH SUCTIONING, PRESENTS COARSE PRE SUCTION, COARSENESS RESIDES WITH 1-2 SUCTIONS. PT CONTINENT. TOLERATED WATER AND PILLS WELL W/ NO S/SX OF ASPIRATION. OTHERWISE, PT RECEIVED BEDTIME DOSE OF IV ATIVAN FOR ANXIETY AND WAS RESTING POST ADMINISTRATION.
--- NOTE | 2020-09-18 05:57 | NUR ---
SHIFT SUMMARY PT ALERT AND ORIENTED, FOLLOWS COMMANDS. ABLE TO WRITE AND MOUTH WORDS TO MAKE NEEDS KNOWN. PT ABLE TO REPOSITION SELF. CONTINUES ON TRACH COLLAR AT 35%. ORAL CARE PROVIDED WITH SUCTION SWABS Q4H. SUCTIONED NEEDED, PT WITH THICK LAWSON SECRETIONS NO BLOOD NOTED. MODERATE AMOUNT OF OOZING FROM TRACH SITE, CLEANED AND NEW GAUZE APPLIED. VSS. PRN DILAUDID GIVEN ONCE CHARTED FOR NECK PAIN.
--- NOTE | 2020-09-18 07:06 | NUR ---
ASSUMED CARE: PT LAYING IN BED BUT AWAKE. TRACH COLLAR IN PLACE WITH 35%. SUCTIONED YELLOW SPUTUM FROM INLINE SUCTION. VSS. NO ACUTE NEEDS OR CONCERNS AT THIS TIME.
--- NOTE | 2020-09-18 08:10 | NUR ---
DR DOHERTY CAME TO SEE PT AND CHANGED TRACH TO A 7.0 UNCUFFED. PLACEMENT CONFIRMED WITH BRONCH. PT SATURATING WELL ON RA. WHEN TRACH SECURED, INLINE SUCTION REAPPLIED. RT GOING TO REPLACE WITH HUMIDIFIED TRACH COLLAR AND SEEKING OUT SPEAKING VALVE. NO ACUTE NEEDS OR CONCERNS AT THIS TIME.
[2020-09-18 08:23] LABS: Hematocrit 41.4 % (37.0-53.0); Hemoglobin 13.5 g/dL (13.5-17.5)
[2020-09-18 08:47] LABS: Albumin, Blood 2.5 g/dL (3.4-5.0); Anion Gap 4 mmol/L (6-16); Blood Urea Nitrogen 13 mg/dL (8-24); Bun/Creatinine Ratio 14.6 (12.0-20.0); CO2, Blood 28 mmol/L (21-32); Chloride, Blood 104 mmol/L (98-108); Creatinine, Blood 0.89 mg/dL (0.60-1.20); Glomerular Filtration Rate >60 (60-); Glucose, Blood 83 mg/dL (70-99); Phosphorus, Blood 1.4 mg/dL (2.5-4.9); Potassium, Blood 3.7 mmol/L (3.5-5.5); Sodium, Blood 136 mmol/L (136-145)
--- NOTE | 2020-09-18 09:29 | NUR ---
CALL TO DR DOHERTY TO VERIFY IF ANY OTHER ORDERS ARE NEEDED PRIOR TO DISCHARGE. STATES HE WISHES FOR BARIUM SWALLOW TO BE DONE. SPEECH AWARE AND SPEECH CALLED DR DOHERTY TO VERIFY ORDER. DISCUSSED WITH PT AND PT IS AWARE THAT IF HE EATS OR DRINKS PRIOR TO THIS STUDY THERE IS A POSSIBILITY OF ASPIRATION. PT IS AWARE OF THIS AND ACCEPTING OF THIS POSSIBILITY AND WANTS TO EAT AND DRINK ANYWAY. SPEECH THERAPIST SAID OK TO GIVE BREAKFAST AND MEDS IF THIS WAS PT'S ANSWER. TWO PHONE CALLS AND MESSAGES TOP PT'S TO TELL HER TO COME IN FOR EDUCATION. AWAITING CALL BACK
--- NOTE | 2020-09-18 11:21 | NUR ---
SPEECH THERAPY AT BEDSIDE NOW GIVING EDUCATION. SPEECH ASKED PT IF BARRIUM SWALLOW WAS OK TO DO AND PT STATED THAT REGARDLESS OF RESULT HE WOULD STILL WANT TO EAT SO SPEECH SAID THEY WOULD NOT DO BARRIUM EXAM. EDUCATION OCCURING ABOUT VALVE AT THIS TIME.
--- NOTE | 2020-09-18 11:26 | NUR ---
SPEECH THERAPIST CAME OUT OF ROOM AND STATES THAT PT'S SATURATION DROPPED INTO THE 80S WITH SPEECH VALVE ON. AFTER SUCTIONING, SATURATION INCREASED. SPEECH THERAPIST STATES THAT PT AND HAD A LOT OF QUESTIONS REGARDING TRACH CARE. RESPIRATORY THERAPIST WILL BE GOING INTO ROOM NEXT.
--- NOTE | 2020-09-18 11:58 | NUR ---
RESPIRATORY THERAPIST WENT TO SEE PT AND NOTICED THAT PT DESATURATED WITH THE VALVE ON. SHE GAVE EDUCATION AND PT AND HAD A LOT OF QUESTIONS. RT WILL BE BACK WITH EDUCATION PAMPHLETS BUT RECOMMENDS THAT PT STAY IN HOSPITAL AT LEAST ONE MORE DAY DUE TO DESATURATION WITH VALVE ON AND WITH NEEDING MORE EDUCATION.
--- NOTE | 2020-09-18 15:48 | NUR ---
RETAIL MANAGEMENT KEYHOLDER CALLED AND STATED THAT ARRANGEMENTS HAVE BEEN MADE FOR [employer] TO BRING PT HIS EQUIPMENT TOMORROW AND A RESPIRATORY THERAPIST WILL BE THERE TOMORROW TO TEACH [employer]IP[employer] AND TO SET UP SUPPLIES. DR ROBLERO OK WITH DELAYING DC UNTIL TOMORROW. APPEARS MORE COMFORTABLE WITH THIS PLAN. RT AND RN DISCUSSED HAVING PT AND START DEMONSTRATING TASKS REGARDING TRACH. RT AT BEDSIDE AT THIS TIME.
[2020-09-18] MEDS ORDERED: K-Phos Origina500 MG PO (16:20)
[2020-09-18] MEDS ORDERED: HYDMOR2 PO (16:21)
[2020-09-18] MEDS ORDERED: SENN187 PO (16:22)
--- NOTE | 2020-09-18 19:04 | NUR ---
PT TRANSFERRED TO PCU 10. REPORT GIVEN TO MIKE MARTINEZ. PT TRANSFERRED VIA WHEELCHAIR BY GIANA. RN AND RT AWARE THAT PT NEEDS EDUCATION ON NEW TRACH.
--- NOTE | 2020-09-18 19:31 | NUR ---
RECEIVED REPROT FROM JUAN FLORES IN ICU. PT TO ROOM AT APPROX 1855. BEDSIDE REPORT GIVEN TO THE ONCOMING RN.
--- NOTE | 2020-09-19 06:00 | NUR ---
SHIFT SUMMARY PT A&O X4. VSS. MONITOR SHOWS SR, HR 60's. SPO2 > 92% W/ HUMIDIFIED AIR TO TRACH COLLAR, FIO2 60%. PT W/ PASSY CHANELLE VALVE IN PLACE, TRANSITIONED TO INLINE SUCTION DURING NIGHT W/ SUCTIONING OF THICK LAWSON SECRETIONS. TRACH CARE DONE W/ LAWSON/RED SECRETIONS NOTED ON GAUZE SURROUNDING TRACH SITE. PT C/O NECK/TRACH SITE PAIN, MEDICATED W/ PRN PO DILAUDID X2 THIS SHIFT W/ IMPROVEMENT. PT ANTICIPATING DISCHARGE HOME TODAY. NO OTHER EVENTS OVER NIGHT.
--- NOTE | 2020-09-19 11:23 | NUR ---
PT DISCHARGE TO HOME VIA WC. CALLED [employer] TO LET THEM KNOW THE TIME OF ARRIVAL OG THIS PT AT HOME FOR EQUIPMENT. IV DC'D. OXYGYNATED PT BEFORE LEAVING. AND PT EDUCATED BY THE RT ABOUT TRACH CARE. PRINTED PACKET WITH TRACH CARE. DISCHARGE PACKET GIVEN TO PT WITH FU APPOINTMENT INSTRUCTION. MEDICATION WAS FAXED TO PHARMACY
== END 2020-09-19 11:52 | disposition home health service (06) | DRG 4 ==
LOC: ICUE 08:50 → SURS 08:50 → PRE IP 10:30 → ICUE 14:09 → PCU 09-18 18:46
PROVIDERS: Internal Medicine; ADMIT Otolaryngology
PROC: 0B110F4 Bypass Trachea to Cutaneous with Tracheostomy Device, Open Approach (ICD-10-PCS; principal; 2020-09-13 10:30)
DX: C34.90 Malignant neoplasm of unspecified part of unspecified bronchus or lung (principal); C79.51 Secondary malignant neoplasm of bone; J38.02 Paralysis of vocal cords and larynx, bilateral; I48.0 Paroxysmal atrial fibrillation; I10 Essential (primary) hypertension; E83.39 Other disorders of phosphorus metabolism; F41.8 Other specified anxiety disorders; Z20.822 Contact with and (suspected) exposure to COVID-19; Z79.01 Long term (current) use of anticoagulants; Z79.899 Other long term (current) drug therapy
CPT/HCPCS: 31502; 31720; 36415; 72040; 80048; 80069; 84100; 85014; 85018; 85027; 88305; 92507; 92526; 92597-GN; 92610; 94002; 94760; 97110; 97116; 97162; 97166; 97530; A9270; J0330; J1100; J1170; J1885; J2060; J2250; J2370; J2405; J2704; J3010; J7030; J7042; J7060; J7120; J7512; U0004

== ENCOUNTER 2020-09-23 10:21 | Emergency (ER) | payer OTHER, MEDICARE ==
[~2020-09-23] VITALS: Ht 177.8 cm; Wt 76.7 kg
[~2020-09-23 10:21] MED LIST changes: +HYDMOR2 PO; +K-Phos Origina500 MG PO; +SENN187 PO
[2020-09-23 12:20] LABS: Bicarbonate Venous 29.1 mmol/L (24.0-30.0); PCO2 Venous 44.1 mmHg (38-42); pH Blood Venous 7.44 (7.34-7.37)
[2020-09-23 12:35] LABS: BASOPHILS ABSOLUTE AUTO 0.06 K/mm3 (0.00-0.23); BASOPHILS PERCENT AUTO 1 % (0-2); EOSINOPHILS ABSOLUTE AUTO 0.02 K/mm3 (0.00-0.68); EOSINOPHILS PERCENT AUTO 0 % (0-6); Hemoglobin 13.9 g/dL (13.5-17.5); IMMATURE GRAN ABSOLUTE AUTO 0.08 K/mm3 (0.00-0.10); IMMATURE GRAN PERCENT AUTO 1 % (0-1); LYMPHOCYTES ABSOLUTE AUTO 0.82 K/mm3 (0.84-5.20); LYMPHOCYTES PERCENT AUTO 9 % (21-46); MONOCYTES ABSOLUTE AUTO 0.74 K/mm3 (0.16-1.47); MONOCYTES PERCENT AUTO 8 % (4-13); Mean Corpuscular HGB 32.3 pg (26.0-34.0); Mean Corpuscular HGB Conc 33.1 g/dL (31.5-36.5); Mean Corpuscular Volume 98 fL (80-100); Mean Platelet Volume 9.9 fL (9.1-12.4); NEUTROPHILS ABSOLUTE AUTO 7.57 K/mm3 (1.96-9.15); NEUTROPHILS PERCENT AUTO 82 % (41-73); Platelet Count 314 K/mm3 (150-400); RDW Coefficient Variation 14.6 % (11.7-14.2); RDW Standard Deviation 52.8 fL (35.1-46.3); White Blood Cell Count 9.29 K/mm3 (4.00-11.30)
[2020-09-23 12:48] LABS: Alanine Aminotransfer (ALT/SGP 42 U/L (12-78); Albumin, Blood 2.8 g/dL (3.4-5.0); Albumin/Globulin Ratio 0.7 (0.8-1.8); Alk Phos 88 U/L (50-136); Anion Gap 4 mmol/L (6-16); Aspartate Aminotrans (AST/SGOT 39 U/L (12-37); Bilirubin, Total 0.3 mg/dL (0.1-1.0); Blood Urea Nitrogen 16 mg/dL (8-24); Bun/Creatinine Ratio 13.9 (12.0-20.0); CO2, Blood 31 mmol/L (21-32); Calcium, Blood 8.6 mg/dL (8.5-10.1); Chloride, Blood 101 mmol/L (98-108); Creatinine, Blood 1.15 mg/dL (0.60-1.20); Globulin, Blood 4.1 g/dL (2.2-4.0); Glomerular Filtration Rate >60 (60-); Glucose, Blood 112 mg/dL (70-99); Potassium, Blood 4.3 mmol/L (3.5-5.5); Sodium, Blood 136 mmol/L (136-145); Total Protein, Blood 6.9 g/dL (6.4-8.2)
[2020-09-23] MEDS ORDERED: TRIDERM28.4 GM TOP (13:00)
[2020-09-23] MEDS ORDERED: VITAMIN D31000 UNI1 PO (14:04)
[2020-09-23] MEDS ORDERED: CYAN500 PO (14:04)
[2020-09-23] MEDS ORDERED: DOCU100 PO (14:04)
[2020-09-23] MEDS ORDERED: FOLI1 PO (14:04)
== END 2020-09-23 17:50 | disposition home or self-care (01) ==
LOC: ER 10:21
PROVIDERS: Emergency Medicine
DX: R09.02 Hypoxemia (principal); C34.90 Malignant neoplasm of unspecified part of unspecified bronchus or lung
CPT/HCPCS: 31720; 36415; 71046; 71260; 80053; 82803; 83880; 85025; 93005; 93010; 93971; 94640; 99285-25; Q9967

== ENCOUNTER 2020-09-28 05:07 | Emergency (ER) | payer OTHER ==
[~2020-09-28] VITALS: Ht 177.8 cm; Wt 77.1 kg
[~2020-09-28 05:07] MED LIST changes: +CYAN500 PO; +DOCU100 PO; +TRIDERM28.4 GM TOP; +VITAMIN D31000 UNI1 PO
== END 2020-09-28 06:30 | disposition home or self-care (01) ==
LOC: ER 05:07
DX: J95.03 Malfunction of tracheostomy stoma (principal); I10 Essential (primary) hypertension; I25.10 Atherosclerotic heart disease of native coronary artery without angina pectoris; E03.9 Hypothyroidism, unspecified; Z88.5 Allergy status to narcotic agent; Z79.01 Long term (current) use of anticoagulants; Z79.899 Other long term (current) drug therapy
CPT/HCPCS: 31720; 99282